=== PATIENT | female | born 1985 | race Two or more races ===

== ENCOUNTER 2019-05-12 13:18 | Inpatient (IN) | payer OTHER ==
[~2019-05-12] VITALS: Ht 170.2 cm; Wt 75.7 kg
[2019-06-02] MEDS ORDERED: PRENATAL 19 TA1 EAC1 PO (13:45)
[2019-06-02] MEDS ORDERED: PEPCID20 MG PO (13:46)
== END 2019-06-04 11:44 | disposition home or self-care (01) | DRG 807 ==
LOC: OB/GYN 06-02 12:17 → LDR 06-02 12:17 → OB/GYN 06-02 15:45 → EDBD 06-10 13:00 → OB/GYN 06-10 13:00
PROVIDERS: ADMIT Obstetrics & Gynecology Maternal & Fetal Medicine
PROC: 10E0XZZ Delivery of Products of Conception, External Approach (ICD-10-PCS; principal; 2019-06-02)
PROC: 0KQM0ZZ Repair Perineum Muscle, Open Approach (ICD-10-PCS; 2019-06-02)
PROC: 4A1HXCZ Monitoring of Products of Conception, Cardiac Rate, External Approach (ICD-10-PCS; 2019-06-02)
DX: O70.1 Second degree perineal laceration during delivery (principal); Z37.0 Single live birth; Z3A.38 38 weeks gestation of pregnancy